=== PATIENT | female | born 1985 | race Two or more races ===

== ENCOUNTER 2019-08-21 12:24 | Emergency (ER) | payer OTHER ==
[~2019-08-21] VITALS: Ht 167.6 cm; Wt 49.9 kg
[2019-08-21 12:25] VITALS: BP 146/82
== END 2019-08-21 13:02 | disposition home or self-care (01) ==
LOC: ER 12:24
DX: J02.9 Acute pharyngitis, unspecified (principal); Z60.2 Problems related to living alone